=== PATIENT | male | born 1935 | race Caucasian/White ===

== ENCOUNTER 2016-11-21 13:34 | Day surgery (SDC) | payer MEDICARE, OTHER ==
[~2016-11-21] VITALS: Ht 170.2 cm; Wt 72.6 kg
[~2016-11-21 13:34] MED LIST: 0.9% Sodium Chloride 1,000 ML IV SCH; ASPI-973 PO; ATRV10T PO; MULT1CAP33 PO; Sodium Chloride LOK Flush 10 mL Syringe IV PRN; fentaNYL-PF 50 mCg/mL 2 mL Inj IVPUSH PRN
[2016-11-21 15:20] VITALS: BP 137/75; PULSE 60; RESP 12; O2SAT 100
[2016-11-21] MEDS ORDERED: METO25TA6 PO (15:28)
[2016-11-21 16:17] VITALS: BP 122/67; PULSE 55; RESP 16; O2SAT 97
[2016-11-21 16:27] VITALS: BP 129/71; PULSE 56; RESP 16; O2SAT 98
[2016-11-21 16:33] VITALS: BP 134/70; PULSE 56; RESP 16; O2SAT 99
--- NOTE | 2016-11-21 16:52 | ENDO ---
[address] [address] ENDOSCOPY PROCEDURE PATIENT: KOFFI ASKEW : 1935 MR#: [id number] ADMIT: 11/21/2016 JOB ID: [id number] DATE: 11/21/2016 PROCEDURE: Colonoscopy. INDICATION: Patient with a family history of colon cancer. Patient's ASA classification is II. Mallampati score is II. MEDICATIONS: Versed 3 mg, fentanyl 75 mcg. INSTRUMENT USED: [id number]. PREPARATION QUALITY: Good. PROCEDURE DETAILS: After informed consent was obtained, the patient was brought into the GI suite, where he was placed on oxygen via nasal cannula and monitored with continuous pulse oximeter, telemetry, and blood pressure monitoring. A time-out was performed. Then, he was placed in a left lateral decubitus position and medications were administered for sedation. Digital rectal exam was performed, which was unremarkable. The colonoscope was then inserted into the rectum and advanced under direct visualization to the cecum, which was identified by the presence of the ileocecal valve and appendiceal orifice. Once the cecum was reached, the colonoscope was withdrawn back into the rectum as the mucosa and lumen were examined. In the rectum, retroflexion was performed. Following retroflexion, remaining air in the rectum was suctioned, and procedure was completed. FINDINGS: 1. In the transverse colon, there was an approximately 6 mm sessile polyp that was removed with a hot snare. 2. In the descending colon, there is a 4-5 mm sessile polyp that was removed with a hot snare. 3. Scattered diverticula were seen throughout the left side of the colon. IMPRESSION: 1. Transverse colon polyp. 2. Descending colon polyp. 3. Left-sided diverticulosis. 4. Prominent anal papillae were noted on retroflexion. COMPLICATIONS: None. ESTIMATED BLOOD LOSS: Zero.
--- NOTE | 2016-11-26 15:21 | PATH ---
SURGICAL PATHOLOGY Attending Physician:Dennis Abrams CASE STATUS: Signed Out PATIENT NAME: KOFFI ASKEW PID: [id number] : 1935 DATE COLLECTED:11/21/2016 00:00 SPECIMEN: 1: Colon, Polyp 2: Colon, Polyp CLINICAL HISTORY: 1). TRANSVERSE POLYP 2). DESCENDING POLYP FINAL DIAGNOSIS: 1. Transverse Polyp, Biopsy: Sessile serrated adenoma with focal, conventional dysplasia; no high grade dysplasia identified. 2. Descending Colon, Polyp, Biopsy: Sessile serrated adenoma. ICD10: K63.5 NOTE: My gastrointestinal pathologist colleagues, Drs. Green and Dylan, have reviewed this case and concur with the above interpretation. GROSS DESCRIPTION: The specimen is received in two formalin filled containers` labeled with the patient's name. 1). The specimen is sublabeled "transverse polyp" and consists of a 0.6 x 0.5 x 0.4 CM portion of tissue which is entirely submitted in cassettes 1A. 2). The specimen is sublabeled "descending polyp" and consists of a 0.6 x 0.6 x 0.5 CM portion of tissue which is entirely submitted in cassette 2A. 11/22/2016 [facility] ICD-9 CODES: CPT CODES: 1: 84995 2: 91948 Electronically Signed Out Gloria Kulkarni MD [facility] Pathology [facility], [place] [address] Technical component performed at [facility], [address] [place] [address] Ave[address], [place], [address]
== END 2016-11-21 23:59 | disposition home or self-care (01) ==
LOC: END 13:34
PROVIDERS: ATTEND Internal Medicine Gastroenterology
DX: Z12.11 Encounter for screening for malignant neoplasm of colon (principal); D12.3 Benign neoplasm of transverse colon; D12.4 Benign neoplasm of descending colon; K57.30 Diverticulosis of large intestine without perforation or abscess without bleeding; K62.89 Other specified diseases of anus and rectum; Z80.0 Family history of malignant neoplasm of digestive organs; N40.1 Benign prostatic hyperplasia with lower urinary tract symptoms; E78.5 Hyperlipidemia, unspecified; Z85.72 Personal history of non-Hodgkin lymphomas; Z92.3 Personal history of irradiation; Z79.82 Long term (current) use of aspirin
CPT/HCPCS: 45385; G0500; J2250; J3010; J7030